=== PATIENT | male | born 1975 | race Caucasian/White ===

== ENCOUNTER 2017-10-26 13:57 | Inpatient (IN) | payer MEDICARE ==
[~2017-10-26] VITALS: Ht 193 cm; Wt 199.5 kg
[2017-10-26] MEDS ORDERED: SODIUM CHLORIDE FLUSH 10ML SYR IVF ONE (15:00)
[2017-10-26] MEDS ORDERED: ASPIRIN 81 MG TABLET CHEW PO ONE (15:00)
[2017-10-26 15:09] LABS: INTERNATIONAL NORMALIZED RATIO 1.03 (0.93-1.1); PROTHROMBIN TIME 10.6 Seconds (9.6-11.5)
[2017-10-26 15:10] LABS: MEAN CORPUSCULAR HEMOGLOBIN 29.5 pg (27.5-34.5); MEAN CORPUSCULAR HGB CONC 33.5 g/dL (33.2-36.2); MEAN CORPUSCULAR VOLUME 87.9 fL (81-97); MEAN PLATELET VOLUME 8.9 fL (7.4-10.4); PLATELET COUNT 207 x10^3/uL (130-400); RED BLOOD COUNT 5.25 x10^6/uL (4.38-5.82); RED CELL DISTRIBUTION WIDTH 14.7 % (9.4-14.8)
[2017-10-26 15:13] LABS: ALANINE AMINOTRANSFERASE 138 U/L (12-78); ALBUMIN 3.6 g/dL (3.4-5.0); ANION GAP 10 mmol/L (5-15); CALCIUM 8.6 mg/dL (8.5-10.1); CHLORIDE 100 mmol/L (98-107); CREATININE 1.32 mg/dL (0.7-1.3)
[2017-10-26 15:18] LABS: ALKALINE PHOSPHATASE 216 U/L (45-117); BILIRUBIN,TOTAL 1.3 mg/dL (0.2-1.0); TOTAL PROTEIN 8.2 g/dL (6.4-8.2); TROPONIN I < 0.015 ng/mL (0.000-0.045)
[2017-10-26 15:41] LABS: MD YES
[2017-10-26] MEDS ORDERED: ASPIRIN 81 MG TABLET CHEW ONE (17:45)
[2017-10-26] MEDS ORDERED: OMNIPAQUE 350 MG/ML, 150 ML BOTTLE ONE (18:38)
[2017-10-26 18:45] LABS: BAND#(MANUAL) 0.86 x10^3/uL; BANDS%(MANUAL) 8 % (0-7); BASOS#(MANUAL) 0.11 x10^3/uL (0-0.1); BASOS% (MANUAL) 1 % (0-1); EOS#(MANUAL) 0.11 x10^3/uL (0.0-0.4); EOS% (MANUAL) 1 % (1-7); LYMPH#(MANUAL) 2.25 x10^3/uL (1-3.4); LYMPHS% (MANUAL) 21 % (22-44); MONOS#(MANUAL) 0.43 x10^3/uL (0.3-2.7); MONOS% (MANUAL) 4 % (2-9); REACTIVE LYMPHS # (MANUAL) 4.71 x10^3/uL (0-0); REACTIVE LYMPHS % (MANUAL) 44 % (0-0); SEG#(MANUAL) 2.03 x10^3/uL (1.8-6.8); SEGS% (MANUAL) 19 % (42-75)
[2017-10-26 18:46] LABS: OTHER CELLS # (MANUAL) 0.21 x10^3/uL (0-0); OTHER CELLS % (MANUAL) 2 % (0-0)
[2017-10-26 18:47] LABS: <PLATELET ESTIMATE> ADEQUATE; ANISOCYTOSIS 1+; GIANT PLATELETS 1+; LARGE PLATELETS 1+
[2017-10-26] MEDS ORDERED: POLYETHYLENE GLYCOL 17 GM PACKET PO PRN (21:00)
[2017-10-26] MEDS ORDERED: ACETAMINOPHEN 325 MG TABLET PO PRN (21:00)
[2017-10-26] MEDS ORDERED: BISACODYL 10 MG SUPP PR PRN (21:00)
[2017-10-26] MEDS ORDERED: ONDANSETRON ODT 4 MG PO PRN (21:00)
[2017-10-26 21:27] VITALS: BP 138/83
[2017-10-26 21:37] LABS: HEMOGLOBIN A1C 7.8 % (4.2-6.3)
[2017-10-26] MEDS: SODIUM CHLORIDE 0.9% 1,000 ML IV SCH (22:00)
[2017-10-26] MEDS: HEPARIN 5,000 UNITS/ML, 1ML SQ SCH (22:00)
[2017-10-27 02:00] VITALS: BP 112/78
[2017-10-27] MEDS: HEPARIN 5,000 UNITS/ML, 1ML SQ SCH ×2 (04:57→13:19)
[2017-10-27 05:58] LABS: MEAN CORPUSCULAR HEMOGLOBIN 29.8 pg (27.5-34.5); MEAN CORPUSCULAR HGB CONC 33.5 g/dL (33.2-36.2); MEAN CORPUSCULAR VOLUME 88.9 fL (81-97); MEAN PLATELET VOLUME 8.8 fL (7.4-10.4); PLATELET COUNT 184 x10^3/uL (130-400); RED BLOOD COUNT 4.67 x10^6/uL (4.38-5.82); RED CELL DISTRIBUTION WIDTH 14.6 % (9.4-14.8)
[2017-10-27 06:08] LABS: ALBUMIN 3.3 g/dL (3.4-5.0); ANION GAP 7 mmol/L (5-15); CALCIUM 8.4 mg/dL (8.5-10.1); CHLORIDE 101 mmol/L (98-107)
[2017-10-27 06:16] LABS: ALANINE AMINOTRANSFERASE 119 U/L (12-78); ALKALINE PHOSPHATASE 182 U/L (45-117); CREATININE 0.91 mg/dL (0.7-1.3); TOTAL PROTEIN 7.6 g/dL (6.4-8.2); TROPONIN I < 0.015 ng/mL (0.000-0.045)
[2017-10-27 06:19] LABS: BILIRUBIN,TOTAL 1.1 mg/dL (0.2-1.0)
[2017-10-27 06:39] LABS: MD YES
[2017-10-27 06:43] LABS: EOS#(MANUAL) 0.11 x10^3/uL (0.0-0.4); EOS% (MANUAL) 1 % (1-7); MONOS#(MANUAL) 0.34 x10^3/uL (0.3-2.7); MONOS% (MANUAL) 3 % (2-9)
[2017-10-27 06:45] LABS: ANISOCYTOSIS 1+; BAND#(MANUAL) 0.57 x10^3/uL; BANDS%(MANUAL) 5 % (0-7); LYMPH#(MANUAL) 3.96 x10^3/uL (1-3.4); LYMPHS% (MANUAL) 35 % (22-44); REACTIVE LYMPHS # (MANUAL) 4.63 x10^3/uL (0-0); REACTIVE LYMPHS % (MANUAL) 41 % (0-0); SEGS% (MANUAL) 15 % (42-75)
[2017-10-27 06:46] LABS: <PLATELET ESTIMATE> ADEQUATE; LARGE PLATELETS 1+
[2017-10-27 07:30] VITALS: BP 125/83
[2017-10-27] MEDS: SODIUM CHLORIDE 0.9% 1,000 ML IV SCH ×2 (08:51→17:38)
[2017-10-27] MEDS ORDERED: SENNA/DOCUSATE TABLET PO SCH (09:00)
[2017-10-27 12:49] LABS: TROPONIN I < 0.015 ng/mL (0.000-0.045)
[2017-10-27 13:05] VITALS: BP 105/70
== END 2017-10-27 18:46 | disposition home or self-care (01) | DRG 865 ==
LOC: ED 18:09 → EDIP 21:22 → 4WST 21:29
PROVIDERS: ADMIT Hospitalist; ATTEND Family Medicine
DX: B27.90 Infectious mononucleosis, unspecified without complication (principal); N17.0 Acute kidney failure with tubular necrosis; E87.1 Hypo-osmolality and hyponatremia; F84.0 Autistic disorder; B17.9 Acute viral hepatitis, unspecified; Z68.43 Body mass index [BMI] 50.0-59.9, adult; K76.0 Fatty (change of) liver, not elsewhere classified; E11.65 Type 2 diabetes mellitus with hyperglycemia; Z60.2 Problems related to living alone; E66.01 Morbid (severe) obesity due to excess calories; D72.820 Lymphocytosis (symptomatic); Z87.891 Personal history of nicotine dependence; Z82.5 Family history of asthma and other chronic lower respiratory diseases; Z79.82 Long term (current) use of aspirin; Z90.89 Acquired absence of other organs
CPT/HCPCS: 36415; 71045; 71275; 76700; 80053; 80074; 83036; 84484; 85025; 85379; 85610; 86308; 86663; 86664; 86665; 93005; 93306; 99285; J1644; Q9967; J7030